=== PATIENT | female | born 1945 | race Caucasian/White ===

== ENCOUNTER 2025-01-28 12:32 | Outpatient (CLI) | payer MEDICARE, MEDICAID ==
[~2025-01-28 12:32] MED LIST: ALPR-624 PO; AMLO-314 PO; ASPI-1265 PO; CALC500T11 PO; EST1T PO; MAGN400T56 PO; METH-603 PO; NORCO10T PO; OMEG1CAP54 PO; PANT-47 PO; SIMV-42 PO; TRAZ150T78 PO
--- NOTE | 2025-01-28 14:34 | RADIOLOGY REPORT ---
PROCEDURE: MR MRA NECK INDICATION: NAUSEA WITH VOMITING Exam Date: 01/28/2025 01:21 PM COMPARISON: None TECHNIQUE: MRA neck without intravenous contrast. 3D image postprocessing was performed on a dedicated workstation and images were used for interpretat ion and reporting. FINDINGS: MRA neck: The visualized thoracic aortic arch and proximal great vessels are unremarkable. There is no evidenc e of hemodynamically significant stenosis involving the bilateral common and internal carotid arterie s. The cervical vertebral arteries are patent. There is no evidence of dissection. IMPRESSION: 1. No evidence of hemodynamically significant cervical stenosis or dissection. HS:Y
--- NOTE | 2025-01-28 14:35 | RADIOLOGY REPORT ---
PROCEDURE: MR MRA HEAD INDICATION: NAUSEA AND VOMITING Exam Date: 01/28/2025 12:54 PM COMPARISON: None TECHNIQUE: MRA head without intravenous contrast. 3D image postprocessing was performed on a dedicated workstation and images were used for interpretat ion and reporting. FINDINGS: MRA head: There is preserved flow within the bilateral distal internal carotid arteries. There is preserved fl ow within the anterior and middle cerebral arteries. Dominant left posterior communicating artery. T here is preserved flow within the vertebral arteries, basilar artery, cerebellar arteries and posteri or cerebral arteries. There is no evidence of hemodynamically significant intracranial stenosis, pro ximal occlusion or aneurysm. No abnormal venous signal is seen. IMPRESSION: 1. No evidence of hemodynamically significant intracranial stenosis, proximal occlusion or aneurysm. HS:Y
== END 2025-01-28 23:59 | disposition home or self-care (01) ==
LOC: MRI02 12:32
PROVIDERS: ATTEND Neuromusculoskeletal Medicine & OMM
DX: R11.2 Nausea with vomiting, unspecified (principal)
CPT/HCPCS: 70544; 70547